=== PATIENT | female | born 1980 | race Hispanic/Latino ===

== ENCOUNTER 2024-01-31 16:38 | Emergency (ER) | payer OTHER ==
[~2024-01-31] VITALS: Ht 152.4 cm; Wt 81.6 kg
[2024-01-31 16:46] VITALS: BP 118/72; PULSE 68; RESP 18
[2024-01-31] MEDS: KETOROLAC 60 MG VIAL (30MG/ML) IM ONE (17:34)
[2024-01-31] MEDS ORDERED: CYCL10TA16 PO (18:12)
[2024-01-31] MEDS ORDERED: IBUP-2077 PO (18:12)
== END 2024-01-31 18:13 | disposition home or self-care (01) ==
LOC: EDH 16:38
DX: S39.012A Strain of muscle, fascia and tendon of lower back, initial encounter (principal); S60.222A Contusion of left hand, initial encounter; E11.9 Type 2 diabetes mellitus without complications; V68.5XXA Driver of heavy transport vehicle injured in noncollision transport accident in traffic accident, initial encounter; Y93.I9 Activity, other involving external motion; Y92.488 Other paved roadways as the place of occurrence of the external cause; Y99.8 Other external cause status
CPT/HCPCS: 99283; 73130; 96372; J1885